=== PATIENT | female | born 1980 | race Caucasian/White ===

== ENCOUNTER 2022-05-09 11:00 | Emergency (ER) | payer OTHER ==
[~2022-05-09] VITALS: Ht 162.6 cm; Wt 117.9 kg
[~2022-05-09 11:00] MED LIST: MEDR10 PO
[2022-05-09] MEDS ORDERED: HYDR1TAB94 PO (13:20)
== END 2022-05-09 13:32 | disposition home or self-care (01) ==
LOC: ER 11:00
DX: S92.322A Displaced fracture of second metatarsal bone, left foot, initial encounter for closed fracture (principal); W01.0XXA Fall on same level from slipping, tripping and stumbling without subsequent striking against object, initial encounter
CPT/HCPCS: 73630

== ENCOUNTER 2025-06-15 08:34 | Day surgery (SDC) | payer OTHER ==
[~2025-06-15] VITALS: Ht 165.5 cm; Wt 126.4 kg
[~2025-06-15 08:34] MED LIST changes: +BACLOFEN5 M1 PO; +HYDR1TAB94 PO; +LOSA25 PO; +RIZATRIPTAN10 MG SL
[2025-06-15 09:35] VITALS: BP 130/84
[2025-06-15] MEDS ORDERED: MONT10T PO (09:47)
--- NOTE | 2025-06-15 09:52 | NUR ---
History, Chart, Medications and Allergies reviewed before start of procedure. Patient up to Ambulate independently. Gait steady. Pre-Op teaching done. Pt verbalizes understanding. Patient confirms NPO status and agrees with scheduled surgery. Patient states colon prep results clear. Patient States Post-Procedure ride home has been arranged.
--- NOTE | 2025-06-15 10:11 | NUR ---
06/15/25 1011 Will Ontiveros MONITOR INTACT WITH CONTINUOUS PULSE OXIMETRY, CONTINUOUS END TITAL CO2, 3-LEAD EKG AND INTERMITTENT BLOOD PRESSURE.O2 VIA POM INTACT THROUGHOUT SEDATION/PROCEDURE.
[2025-06-15 10:41] VITALS: BP 143/123
== END 2025-06-15 23:00 | disposition home or self-care (01) ==
LOC: ORSCMMR 08:34 → ORD 09:30 → ORSCMMR 23:00
PROVIDERS: Surgery
PROC: 0DJD8ZZ Inspection of Lower Intestinal Tract, Via Natural or Artificial Opening Endoscopic (ICD-10-PCS; principal; 2025-06-15 09:30)
DX: Z12.11 Encounter for screening for malignant neoplasm of colon (principal); F41.9 Anxiety disorder, unspecified; J45.909 Unspecified asthma, uncomplicated; F32.A Depression, unspecified; I10 Essential (primary) hypertension; K70.0 Alcoholic fatty liver; E66.01 Morbid (severe) obesity due to excess calories; Z68.42 Body mass index [BMI] 45.0-49.9, adult; Z79.899 Other long term (current) drug therapy; Z87.891 Personal history of nicotine dependence
CPT/HCPCS: J2704; J7120